=== PATIENT | female | born 1940 | race Caucasian/White ===

== ENCOUNTER → 2019-11-19 14:53 | Outpatient (CLI) | payer MEDICARE, OTHER, SELFPAY ==
--- NOTE | 2019-11-19 15:09 | RAD_ITS ---
STUDY: X-RAY - PELVIS REASON FOR EXAM: Female, 78 years old. Pain, stiffness TECHNIQUE: One view of the pelvis was obtained. COMPARISON: None. FINDINGS: There is a non-specific bowel gas pattern. Normal visualized soft tissue structures. There is diffuse demineralization of the osseous structures. There is narrowing with cortical sclerosis and osteophyte formation of the sacroiliac joint consistent with degenerative osteoarthritic changes. Normal visualized bilateral superior and inferior pubic rami. Normal pubic symphysis. Normal ischial tuberosities. Normal visualized right femoral head. Normal right acetabulum. There is mild articular joint space narrowing of the right hip. Normal visualized left femoral head. Normal left acetabulum. There is mild articular joint space narrowing of the left hip. RAD/Pelvis 1 or 2 Views IMPRESSION: Age consistent degenerative changes, no acute findings Electronically Signed: Seun Siddiqui MD at 16:08 EST , Service support ,
[2019-11-19 17:43] LABS: Absolute Lymphocyte Count 0.73 X10^3/uL (0.83-4.51); Basophil# 0.04 X10^3/uL; Basophil% 0.6 % (0-1); Eosinophil# 0.01 X10^3/uL; Eosinophils% 0.1 % (0-5); Hematocrit 42.9 % (37-47); Hemoglobin 13.5 g/dL (12.0-15.0); Lymphocyte # 0.73 X10^3/ul (4.0); Lymphocyte % 10.5 % (19-41); Mean Corp Hgb Conc 31.5 g/dL (32-36); Mean Corpuscular Hgb 30.5 pg (27.0-32.0); Mean Corpuscular Volume 97.1 fL (81-99); Mean Platelet Vol. 11.5 fl (6.2-12.0); Monocyte# 0.14 X10^3/uL; NRBC Flagged by Analyzer 0 % (0-5); Neutrophil # 6.01 X10^3/uL (2.7-7.7); Neutrophil % 86.5 % (47-70); Platelet Count 249 K/mm3 (150-450); RBC Distribution Width CV 14.7 % (11.6-14.6); RBC Distribution Width SD 53.3 fl (35.1-43.9); Red Blood Count 4.42 M/mm3 (4.2-5.4)
[2019-11-19 17:51] LABS: Erythrocyte Sedimentation Rate 32 mm/hr (0-30)
[2019-11-19 18:02] LABS: ALB/GLOB Ratio 1.1 RATIO (0.9-2.4); AST(SGOT) 20 U/L (15-37); Alanine Aminotransfer ALT/SGPT 30 U/L (13-56); Albumin, Serum 4.1 g/dL (3.2-5.0); Alkaline Phosphatase 69 U/L (45-117); Anion Gap 5 (5-15); BUN 17 mg/dL (7-18); Calcium,Total 9.8 mg/dL (8.5-10.1); Chloride 105 mmol/L (98-107); Creatinine, Serum 0.81 mg/dL (0.55-1.02); EST Glomerular Filtration Rate 73 mL/min (>60); Est Glom Filt Rate - Afr Amer 88 mL/min (>60); Globulin 3.8 g/dL (2.2-4.2); Glucose 97 mg/dL (74-106); Protein, Total 7.9 g/dL (6.4-8.2); Rheumatoid Factor < 10.0 IU/mL (<15); Sodium Level 140 mmol/L (136-145)
[2019-11-20 13:01] LABS: Hepatitis B Surface Antibody Non-Reactive; Hepatitis B Surface Antigen Non-Reactive (Nonreactive); Hepatitis C Antibody Non-Reactive (Nonreactive)
[2019-11-21 15:46] LABS: ANTINUCLEAR ANTIBODIES DIRECT Negative (Negative)
[2019-11-22 05:43] LABS: CCP IgG Antibodies 15 units (0-19); Hepatitis B Core AB IgM Negative (Negative)
== END ==
PROVIDERS: PCP Family Medicine; Referring Provider Internal Medicine Rheumatology; Visit Provider Internal Medicine Rheumatology
DX: M06.4 Inflammatory polyarthropathy (principal); M47.897 Other spondylosis, lumbosacral region; K21.9 Gastro-esophageal reflux disease without esophagitis
CPT/HCPCS: 36415; 72170; 80053; 85025; 85652; 86038; 86140; 86200; 86431; 86705; 86706; 86803; 87340

== ENCOUNTER → 2020-03-03 11:03 | Outpatient (CLI) | payer MEDICARE, OTHER, SELFPAY ==
[2020-03-03 15:13] LABS: Absolute Lymphocyte Count 0.97 X10^3/uL (0.83-4.51); Absolute Neutrophil Count 7.6 X10^3/uL (2.0-7.7); Basophil# 0.06 X10^3/uL; Basophil% 0.7 % (0-1); Eosinophil# 0.04 X10^3/uL; Eosinophils% 0.4 % (0-5); Hematocrit 45.7 % (37-47); Hemoglobin 14.2 g/dL (12.0-15.0); Lymphocyte # 0.97 X10^3/ul (4.0); Lymphocyte % 10.7 % (19-41); Mean Corp Hgb Conc 31.1 g/dL (32-36); Mean Corpuscular Hgb 29.6 pg (27.0-32.0); Mean Corpuscular Volume 95.2 fL (81-99); Monocyte# 0.38 X10^3/uL; Monocyte% 4.2 % (0-10); NRBC Flagged by Analyzer 0 % (0-5); Neutrophil # 7.57 X10^3/uL (2.7-7.7); Neutrophil % 83.8 % (47-70); Platelet Count 250 K/mm3 (150-450); RBC Distribution Width CV 13.5 % (11.6-14.6); RBC Distribution Width SD 47.6 fl (35.1-43.9)
[2020-03-03 15:34] LABS: AST(SGOT) 18 U/L (15-37); Alanine Aminotransfer ALT/SGPT 29 U/L (13-56); Albumin, Serum 3.9 g/dL (3.2-5.0); Alkaline Phosphatase 62 U/L (45-117); Anion Gap 6 (5-15); BUN 18 mg/dL (7-18); BUN/Creat Ratio 18.8 RATIO (10-20); Chloride 105 mmol/L (98-107); Creatinine, Serum 0.96 mg/dL (0.55-1.02); EST Glomerular Filtration Rate 60 mL/min (>60); Est Glom Filt Rate - Afr Amer 73 mL/min (>60); Globulin 3.8 g/dL (2.2-4.2); Glucose 80 mg/dL (74-106); Potassium 3.7 mmol/L (3.5-5.1); Protein, Total 7.7 g/dL (6.4-8.2); Sodium Level 141 mmol/L (136-145)
== END ==
PROVIDERS: PCP Family Medicine; Referring Provider Internal Medicine Rheumatology; Visit Provider Internal Medicine Rheumatology
DX: M06.4 Inflammatory polyarthropathy (principal); M47.897 Other spondylosis, lumbosacral region; K21.9 Gastro-esophageal reflux disease without esophagitis
CPT/HCPCS: 36415; 80053; 85025

== ENCOUNTER 2020-03-26 09:30 | Outpatient (RCR) | payer MEDICARE, OTHER, SELFPAY ==
--- NOTE | 2020-02-28 15:16 | HP.PTEVAL ---
Patient's Visit Information LAURIE HANSEN is a 79 year old F referred to Physical Therapy by Dr. Kenneth Smyth MD with a diagnosis of Unsteediness on feet. Date of Evaluation: 02/28/20 Physical Therapist: Mauro Alexandra, LUCRETIAT, OCS, CSCS - Visit Plan Frequency: 2x /Week Duration: 2 Months Plan: Neurocom balacne assessment. then 2x/week for 4-8 weeks for. 1. LE and postural strength program pt can do at home. 2. ankle and feet proprioceptive adn coordination ex progressing to HEP. 3. Work on any deficits found on balance testing. - Subjective Dr. Michele sent to Dr. Smyth. Sees Leny for Polymyalgia rhumatica. Leny said RA but joints feel really good. Does have pain in UT area and larger muscle groups. Coordination and gait are off. Lived in [place] for 12 years and got hard to do steps maybe due to stress. 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 Dr. Michele sent to [facility] who got MRI 2 days ago. No results yet. Maybe looking for slight stroke?!? Forgetful and runs into door jambs move into her way. No recent falls in last two years. No AD needed. Has steps to second story and basement which she needs to hold on for. Then says last fall was 10 months or so ago coming out of restaurant and stepping off curb. Also fella week later on steps at her home at that time. Does not feel steady, has to be careful. No spinning but does veer when on feet. Some days are good and others are worse without pattern. No real pain unless shoulders achy. Tires out around 4:00. Sleep is good. Has to be careful getting up out of bed. Basic ADLs are getting done, had surgeries on back recently and she is able to help him. No regular exercises. Last 3 hour drum gig was last year. - Objective Walks slowly but steady on firm flat surface. Steps are reciprocal requiring rail but only puts half of foot on step and is weak eccentrically. Transfers I. LE AROM WFL and HS and gastroc mod tight. coordination to reciprocal toe adn heel tap is mild deficits. heel to jon is good. reflexes 1/3 patella adn achilles and bi and tri. Sensation WNL to gross light touch in LE. Strength 4/5 Legs except hip abd and ext 3+. VOR walking is mildly challenging. - Balance Scores Functional Gait Assessment Score: 26 % Disability: 13.3400 CATSIB Score (Max score 120 seconds): 98 - Goals Goal 1:: I approp LE and postural strength adn prorpioceptive ex to maintain improvement in condition Goal Time Frame: 4-6 Weeks Goal 2:: Neurocom balance assess adn explain results Goal Time Frame: 1 Week Goal 3:: Pt feel 75% improved in overall steadiness and strength Goal Time Frame: 4-6 Weeks Goal 4:: LEFSscore of 25% disability or less Goal Time Frame: 4-6 Weeks - Rehabilitation Potential Physical Therapy Diagnosis: Unsteadiness on feet Rehabilitation Potential: Fair - Anticipated Interventions Patient/Client Instruction: Educate patient on: Condition, Plan of Care For the Purpose of:: To improve muscle performance and motor function, To increase tolerance to activity/condition/position, To improve gait and locomotor functions Therapeutic Exercise to Include: Strength training, Balance training, Postural training, Neuromotor development For the Purpose of:: To increase tolerance to activity/condition/position, To improve ability of physical actions for home/community/work/leisure, To improve gait and locomotor functions Thank you for the opportunity to evaluate your patient. For Medicare and Medicare HMO plans, please review the plan of care and approve it. It will need to be FAXED BACK to us at [phone] for Medicare purposes. For Medicare only, by signing this I certify the plan of care. Please let me know if there are questions or concerns regarding this plan of care. Physician Signature: Date:
--- NOTE | 2020-03-04 10:47 | HP.PTCOM_ITS ---
PT Communication Note 03/04/[address] Kenneth Smyth MD , Thank you for the referral of Radha to [facility] for Balance Assessment. I have enclosed a copy of the results for your review. In summation, she scored low on vestibular portion of the Sensory Organization Test. She also scored low on the forward excursion on the Limits of Stability Test. With these results in mind, I plan to see her 2x/week for 4-8 weeks for ex to address LE strength, ankle strength adn coordination and the above mentioned balance deficits. Please contact me if you have questions regarding her physical therapy. Thank you. Sincerely, LUCRETIA ReedT, OCS, CSCS Contact Information
--- NOTE | 2020-03-26 10:32 | HP.PTDCSUM ---
It has been my pleasure to treat LAURIE HANSEN referred by Dr. Kenneth Smyth MD, with the diagnosis of Unsteediness on feet for a total of 10 visit(s). Discharge Date: 03/26/20 Please see the following information for a summary of their discharge status. Subjective: Endurance is still iffy, Balance is better. Strength is improving a little bit. Feels like if she gets into a routine with ex and stay motivated. % Improvement: 50 Objective/Function: + 2 FGA. exits chair without UE easily and I. Steps reciprocal without rail today. Feels like she can continue on her own at home. Goal 1:: I approp LE and postural strength adn prorpioceptive ex to maintain improvement in condition Goal Progress: Goal Met Goal 2:: Neurocom balance assess adn explain results Goal Progress: Goal Met Goal 3:: Pt feel 75% improved in overall steadiness and strength Goal Progress: Progressing Goal 4:: LEFSscore of 25% disability or less Goal Progress: Goal Met Plan: d/c If there are questions or concerns regarding this patient's physical therapy, please feel free to call me at [phone]. Thank you for the referral of this patient. Sincerely, Mauro Alexandra, DPT, OCS, CSCS
== END 2020-03-26 19:00 | disposition home or self-care (01) ==
LOC: PT 09:30
PROVIDERS: PCP Family Medicine; Referring Provider Psychiatry & Neurology Neurology; Visit Provider Psychiatry & Neurology Neurology
DX: M35.3 Polymyalgia rheumatica (principal); R26.81 Unsteadiness on feet
CPT/HCPCS: 97110; 97162; 97164; 97530; 97750

== ENCOUNTER → 2020-12-03 10:53 | Outpatient (CLI) | payer MEDICARE, SELFPAY ==
[2020-11-24 09:27] VITALS: BMI 27.6
--- NOTE | 2020-12-03 10:55 | MRI_ITS ---
STUDY: MRI BRAIN WITH AND WITHOUT CONTRAST REASON FOR EXAM: Female, 79 years old. Cerebral Vascular Disease TECHNIQUE: Standardized multiplanar fat and water weighted pulse sequences were obtained. 15 ML IV DOTAREM was administered for the contrast portion of the examination. COMPARISON: MRI brain without contrast 02/26/2020. FINDINGS: No diffusion restriction to suggest acute or subacute ischemic infarct. Normal size of the ventricles and extra-axial spaces for the patient''s age. T2 FLAIR hyperintensity focus in the left side of the splenium of the corpus callosum is presumably chronic white matter ischemic change. This is unchanged. Posterior periventricular white matter and left temporal lobe subcortical white matter T2 FLAIR hyperintensity foci were also present previously. They are most likely chronic white matter ischemic changes. No midline shift and no mass effects. Normal bilateral basal ganglia. Normal thalami. There is no extra-axial fluid accumulation. Normal flow voids within the major intracranial circulation suggesting patency by spin echo criteria. Normal venous enhancement. There is no enhancing intra-axial or extra-axial abnormality. Normal sella turcica, pituitary gland, infundibular stalk, optic chiasm and hypothalamus. Normal tectal plate and pineal gland. Round T2 FLAIR hyperintensity focus in the right central pontine tegmentum is chronic ischemic change. Normal midbrain and medulla. Normal cerebellum. Normal basal cisterns. Normal bilateral temporal bones. Normal bilateral internal auditory canals. No demonstrated orbital abnormality, within the constraints of a routine brain study. Normal visualized paranasal sinuses. Normal calvarium and skull base. Normal visualized soft tissue structures. Normal visualized upper cervical spine. MRI/Brain W/WO Contrast IMPRESSION: 1. No MRI evidence of recent ischemic infarction. 2. 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 3. No interval changes or new findings when compared to 02/26/2020. Electronically Signed: Fly Sanchez MD at 8:54 EST , Service support ,
== END ==
PROVIDERS: PCP Family Medicine; Referring Provider Psychiatry & Neurology Neurology; Visit Provider Psychiatry & Neurology Neurology
DX: G31.84 Mild cognitive impairment of uncertain or unknown etiology (principal); I67.9 Cerebrovascular disease, unspecified
CPT/HCPCS: 70553; A9575

== ENCOUNTER → 2021-02-23 11:15 | Outpatient (CLI) | payer MEDICARE, SELFPAY ==
[2021-01-19 13:11] VITALS: BMI 27.6
[2021-02-23 15:22] LABS: Absolute Lymphocyte Count 0.98 X10^3/uL (0.83-4.51); Basophil# 0.06 X10^3/uL; Basophil% 1.1 % (0-1); Eosinophil# 0.04 X10^3/uL; Eosinophils% 0.7 % (0-5); Hemoglobin 12.9 g/dL (12.0-15.0); Lymphocyte # 0.98 X10^3/ul (0.83-4.51); Lymphocyte % 18.4 % (19-41); Mean Corp Hgb Conc 31.5 g/dL (32-36); Mean Corpuscular Hgb 29.7 pg (27.0-32.0); Mean Corpuscular Volume 94.3 fL (81-99); Mean Platelet Vol. 11.8 fl (6.2-12.0); Monocyte# 0.24 X10^3/uL; Monocyte% 4.5 % (0-10); NRBC Flagged by Analyzer 0 % (0-5); Neutrophil # 4.01 X10^3/uL (2.7-7.7); Neutrophil % 75.1 % (47-70); Platelet Count 263 K/mm3 (150-450); RBC Distribution Width CV 13.5 % (11.6-14.6); RBC Distribution Width SD 47.2 fl (35.1-43.9); Red Blood Count 4.35 M/mm3 (4.2-5.4); White Blood Count 5.3 K/mm3 (4.4-11.0)
[2021-02-23 15:43] LABS: ALB/GLOB Ratio 1.1 RATIO (0.9-2.4); AST(SGOT) 28 U/L (15-37); Alanine Aminotransfer ALT/SGPT 26 U/L (13-56); Albumin, Serum 3.9 g/dL (3.2-5.0); Alkaline Phosphatase 70 U/L (45-117); Anion Gap 5 (5-15); BUN 13 mg/dL (7-18); BUN/Creat Ratio 14.8 RATIO (10-20); Calcium,Total 10.1 mg/dL (8.5-10.1); Chloride 107 mmol/L (98-107); Creatinine, Serum 0.88 mg/dL (0.55-1.02); EST Glomerular Filtration Rate 66 mL/min (>60); Est Glom Filt Rate - Afr Amer 80 mL/min (>60); Globulin 3.4 g/dL (2.2-4.2); Glucose 89 mg/dL (74-106); Potassium 4.1 mmol/L (3.5-5.1); Protein, Total 7.3 g/dL (6.4-8.2); Sodium Level 140 mmol/L (136-145)
== END ==
PROVIDERS: PCP Family Medicine; Referring Provider Internal Medicine Rheumatology; Visit Provider Internal Medicine Rheumatology
DX: M06.4 Inflammatory polyarthropathy (principal); M47.897 Other spondylosis, lumbosacral region; K21.9 Gastro-esophageal reflux disease without esophagitis
CPT/HCPCS: 36415; 80053; 85025

== ENCOUNTER → 2023-04-10 | Outpatient (CLI) | payer BC, SELFPAY ==
--- NOTE | 2023-04-10 13:04 | RAD_ITS ---
INDICATION: Right Hip Pain EXAMINATION/TECHNIQUE: X-RAY - XR Hip Unilateral with Pelvis when performed; 2-3 Views COMPARISON: None. FINDINGS: PELVIC BONES: No displaced fracture, destructive or sclerotic lesions. Note that overlapping bowel shadows may however obscure fine detail. Sacroiliac joints are unremarkable. There is narrowing of the pubic symphysis, accompanied by subarticular sclerosis and early superior periarticular spurring HIPS: Mild to moderate medial narrowing of the right hip joint space, accompanied by periarticular spurring of the femoral head No displaced fracture seen in this frontal view. SOFT TISSUES: No soft tissue swelling or gas. OTHER: Moderate disc height narrowing and facet arthropathies noted at L4-5. RAD/HIP, UNI W/ Pelvis 2-3 Views IMPRESSION: Degenerative changes in the lower lumbar spine and at the right hip, as noted. Electronically Signed: Seun Wilkes MD at 14:26 EDT Reading Location ID and State: [id number] / Unknown , Service support ,
--- NOTE | 2023-04-10 13:04 | RAD_ITS ---
INDICATION: Bilateral Knee Pain EXAMINATION/TECHNIQUE: X-RAY - Upright RIGHT XR Knee 3 Views COMPARISON: None FINDINGS: SOFT TISSUES: Small suprapatellar joint effusion present. No soft tissue swelling or gas. No radiopaque foreign body. BONES/JOINTS: No acute fracture or subluxation. Normal alignment. There is early periarticular spurring of the patella. Mild narrowing of the lateral femorotibial compartment. Chondrocalcinosis incidentally noted in both the medial and lateral femorotibial compartments as well. No sclerotic or destructive changes observed. RAD/Knee 3 Views IMPRESSION: 1. Chondrocalcinosis and small suprapatellar joint effusion, findings that can be associated with pathology such as gout, pseudogout, and ochronosis. 2. Mild degenerative narrowing in the lateral femorotibial compartment. Electronically Signed: Seun Wilkes MD at 16:47 EDT Reading Location ID and State: [id number] / Unknown , Service support ,
--- NOTE | 2023-04-10 13:04 | RAD_ITS ---
INDICATION: Right Shoulder Pain EXAMINATION/TECHNIQUE: X-RAY - RIGHT XR Shoulder Min 2 Views 4 VIEWS COMPARISON: None. FINDINGS: SOFT TISSUES: No soft tissue swelling or gas. No radiopaque foreign body. BONES/JOINTS: No acute fracture or subluxation.. Normal alignment. Borderline narrowing of the inferior glenohumeral joint space with early periarticular spurring from the inferior margin of the glenoid. No sclerotic or destructive changes observed. RAD/Shoulder min 2 Views IMPRESSION: Early degenerative change at the inferior aspect of the right glenohumeral joint. Electronically Signed: Seun Wilkes MD at 14:18 EDT Reading Location ID and State: [id number] / Unknown , Service support ,
--- NOTE | 2023-04-10 13:07 | RAD_ITS ---
INDICATION: PAIN -- BILAT KNEES ORDERED EXAMINATION/TECHNIQUE: X-RAY - Upright LEFT XR Knee 3 Views COMPARISON: None FINDINGS: SOFT TISSUES: Small suprapatellar joint effusion present. No soft tissue swelling or gas. No radiopaque foreign body. BONES/JOINTS: No acute fracture or subluxation. Normal alignment. There is early periarticular spurring of the medial and lateral tibial plateaus. Mild narrowing of the lateral femorotibial compartment. Chondrocalcinosis incidentally noted in both the medial and lateral femorotibial compartments as well. No sclerotic or destructive changes observed. RAD/Knee 3 Views IMPRESSION: 1. Chondrocalcinosis and small suprapatellar joint effusion, findings that can be associated with pathology such as gout, pseudogout, and ochronosis. 2. Mild degenerative narrowing in the lateral femorotibial compartment. Electronically Signed: Seun Wilkes MD at 14:22 EDT Reading Location ID and State: [id number] / Unknown , Service support ,
== END | disposition home or self-care (01) ==
PROVIDERS: PCP Family Medicine; Referring Provider Psychiatry & Neurology Neurology; Visit Provider Psychiatry & Neurology Neurology
DX: M25.561 Pain in right knee (principal); M25.562 Pain in left knee; M25.511 Pain in right shoulder; M25.551 Pain in right hip
CPT/HCPCS: 73030; 73502; 73562

== ENCOUNTER → 2023-10-12 | Outpatient (CLI) | payer BC, SELFPAY ==
--- NOTE | 2023-10-12 16:30 | RAD_ITS ---
STUDY: X-RAY - LUMBAR SPINE REASON FOR EXAM: Female, 82 years old. low back pain TECHNIQUE: 2 view(s) of the lumbar spine were obtained. COMPARISON: None FINDINGS: Normal lumbar lordosis. Mild dextroscoliosis centered at L2. 2 mm of anterolisthesis of L4 on L5. Normal vertebral bodies and endplates. Normal disc space heights. There is multilevel facet hypertrophy in the lumbar spine. The soft tissue structures are unremarkable. RAD/Lumbar Spine 2 or 3 Views IMPRESSION: Mild dextroscoliosis with degenerative disc disease in 2 mm of anterolisthesis of L4 on L5. Electronically Signed: Alan Fraser MD at 19:01 EST ,
--- OUTSIDE RECORDS SUMMARY | 2023-10-12 16:40 | XMS RPT_ITS | CCD ---
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 Evgeny Wiggins Referring Unava ilable Stencel, Dr. Evgeny Wiggins Primary Care Unava ilable Stencel, Dr. Evgeny Wiggins Attending Unava ilable Stencel, Dr. Evgeny Wiggins Referring Unava ilable Stencel, Dr. Evgeny Wiggins Primary Care Unava ilable Stencel, Dr. Evgeny Wiggins Attending Unava ilable Stencel, Dr. Evgeny Wiggins Attending Unava ilable Stencel, Dr. Evgeny Wiggins Primary Care Unava ilable Badmelissa, Dr. Bishnu Betancourt Attending Unav ailable Stencel, Dr. Evgeny Wiggins Primary Care Unava ilable Stencel, Dr. Evgeny Wiggins Primary Care Unava ilable Badmelissa, Dr. Bishnu Betancourt Attending Arabellav ailBISHNU Tang Referring Unavaila ble STENCEL, EVGENY Tellez Primary Care Unavailable STENCEL, EVGENY Tellez Primary Care Unavailable STENCEL, EVGENY Tellez Primary Care Unavailable BADDOBISHNU AMOR Referring Unavaila ble STENCEL, EVGENY Tellez Primary Care Unavailable STENCEL, EVGENY Tellez Primary Care Unavailable STENCEL, EVGENY Tellez Attending Unavailable STENCEL, EVGENY Tellez Primary Care Unavailable STENCEL, EVGENY Tellez Attending Unavailable STENCEL, EVGENY Tellez Primary Care Unavailable STENCEL, EVGENY Tellez Attending Unavailable STENCEL, EVGENY D Referring Unavailable EVGENY ZAVALETA Primary Care Unavailable Medications Current Medications Medication Drug Class(es) Dates Sig (Normalized) Sig (Original) alendronic acid 70 mg oral tablet (8 sources) Bisphosphonate End: 03-16-2023 take 1 tablet by mouth in the morning alendronate (Fosamax) 70 mg tablet Take 1 tablet (70 mg) by mouth every 7 days. Take in the morning with a full glass of water, on an empty stomach, and do not take anything else by mouth or lie down for the next 30 min. 0 03/16/2023 Discontinued (Therapy completed) Completed/Discontinued Medications Medication Drug Class(es) Dates Sig (Normalized) Sig (Original) aspirin 81 mg delayed release oral tablet (13 sources) Platelet Aggregation Inhibitor, Nonsteroidal Anti-inflammatory Drug Start: 09-28-2020 End: 03-16-2023 take 1 tablet by mouth once daily Adult Aspirin Regimen 81 MG Oral Tablet Delayed Release TAKE 1 TABLET DAILY. Quantity: 0 Refills: 0 Ordered: 28-Sep-2020 Evgeny Zavaleta MD Start : 28-Sep-2020 Active Problems Active Problems Problem Classification Problem Date Documented Date Episodic/Chronic Conditions associated with dizziness or vertigo (12 sources) Dizziness; Translations: [Dizziness and giddiness] Onset: 11-28-2022 11-28-2022 Episodic Esophageal disorders (12 sources) Gastroesophageal reflux disease; Translations: [Esophageal reflux] Onset: 11-28-2022 Resolved: 03-16-2023 03-16-2023 Chronic Essential hypertension (9 sources) Benign essential hypertension; Translations: [Benign essential hypertension] Onset: 11-28-2022 03-16-2023 Chronic Immunizations and screening for infectious disease (20 sources) Patient encounter status; Translations: [Other specified vaccination] Episodic Malaise and fatigue (2 sources) Weakness; Translations: [Weakness] Onset: 10-03-2023 Episodic Other connective tissue disease (13 sources) Polymyalgia rheumatica; Translations: [Polymyalgia rheumatica] Onset: 11-28-2022 03-16-2023 Chronic Other connective tissue disease (4 sources) Polymyalgia rheumatica; Translations: [Polymyalgia rheumatica (CMS/HCC)] Onset: 11-28-2022 Chronic Other injuries and conditions due to external causes (1 source) Foreign body in ear; Translations: [Foreign body in ear] 04-14-2022 Episodic Other nervous system disorders (7 sources) Carpal tunnel syndrome; Translations: [Carpal tunnel syndrome] Chronic Other nervous system disorders (2 sources) Other chronic pain; Translations: [Other chronic pain] Onset: 07-06-2023 Chronic Other nervous system disorders (12 sources) Abnormal gait; Translations: [Abnormality of gait] Onset: 11-28-2022 Resolved: 03-16-2023 03-16-2023 Episodic Other nervous system disorders (3 sources) Unspecified abnormalities of gait and mobility; Translations: [Unspecified abnormalities of gait and mobility] Onset: 06-21-2023 Episodic Other non-traumatic joint disorders (5 sources) Pain in right knee; Translations: [Pain in right knee] Onset: 06-21-2023 Episodic Other non-traumatic joint disorders (1 source) Hip pain; Translations: [Pain in joint, pelvic region and thigh] Episodic Other non-traumatic joint disorders (4 sources) Pain in right shoulder; Translations: [Pain in right shoulder] Onset: 06-21-2023 Episodic Other non-traumatic joint disorders (3 sources) Pain in left knee; Translations: [Pain in left knee] Onset: 06-21-2023 Episodic Other non-traumatic joint disorders (3 sources) Pain in right hip; Translations: [Pain in right hip] Onset: 06-21-2023 Episodic Other upper respiratory infections (2 sources) Acute upper respiratory infection, unspecified; Translations: [Acute upper respiratory infection, unspecified] Onset: 11-21-2022 Episodic Residual codes; unclassified (12 sources) Forgetful; Translations: [Other general symptoms] Onset: 11-28-2022 11-28-2022 Episodic Residual codes; unclassified (3 sources) Body mass index 20-24 - normal; Translations: [Body Mass Index between 19-24, adult] Episodic Rheumatoid arthritis and related disease (12 sources) Inflammatory polyarthropathy; 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] Onset: 11-28-2022 Resolved: 11-28-2022 11-28-2022 Chronic Spondylosis; intervertebral disc disorders; other back problems (12 sources) Lumbosacral spondylosis; Translations: [Lumbosacral spondylosis without myelopathy] Onset: 11-28-2022 Resolved: 11-28-2022 11-28-2022 Chronic Unclassified (2 sources) FB L EAR 04-14-2022 Past or Other Problems Problem Classification Problem Date Documented Da te Episodic/Chronic Other nervous system disorders (1 source) Carpal tunnel syndrome of right wrist; Translations: [Carpal tunnel syndrome, right upper limb] Onset: 11-28-2022 Resolved: 03-16-2023 03-16-2023 Chronic Unclassified (1 source) Onset: 03-16-2023 03-16-2023 Unclassified (2 sources) Acute cough; Translations: [Acute cough] Onset: 11-28-2022 Results Test Name Value Interpretation Reference Range Facil ity Vital Signs Date Time Vital Sign Value Performing Clinician Facility 03-16-2023 09:06-0400 Body height 157.5 cm Evgeny Zavaleta MD Work Phone: [facility] 03-16-2023 09:06-0400 Body mass index (BMI) [Ratio] 23.01 kg/m2 Evgeny Zavaleta MD Work Phone: [facility] 03-16-2023 09:06-0400 Body weight 57.06 kg Evgeny Zavaleta MD Work Phone: [facility] 03-16-2023 09:06-0400 Diastolic blood pressure 70 mm[Hg] Evgeyn Zavaleta MD Work Phone: [facility] 03-16-2023 09:06-0400 Heart rate 74 /min Evgeny Zavaleta MD Work Phone: [facility] 03-16-2023 09:06-0400 SaO2% (BldA) [Mass fraction] 96 % Evgeny Zavaleta MD Work Phone: [facility] 03-16-2023 09:06-0400 Systolic blood pressure 130 mm[Hg] Evgeny Zavaleta MD Work Phone: [facility] 08-12-2022 08:39-0500 Body height 157.48 cm Evgeny Zavaleta Work Phone: [facility] Work Phone: 08-12-2022 08:39-0500 Body mass index (BMI) [Ratio] 24.22 kg/m2 Evgeny Zavaleta Work Phone: [facility] Work Phone: 08-12-2022 08:39-0500 Body surface area Derived from formula 1.6 m2 Evgeny Zavaleta Work Phone: [facility] Work Phone: 08-12-2022 08:39-0500 Body weight 60.07 kg Evgeny Zavaleta Work Phone: [facility] Work Phone: 08-12-2022 08:39-0500 Diastolic blood pressure 68 mm[Hg] Evgeny Zavaleta Work Phone: [facility] Work Phone: 08-12-2022 08:39-0500 Heart rate 80 /min Evgeny Zavaleta Work Phone: [facility] Work Phone: 08-12-2022 08:39-0500 SaO2% (BldA) [Mass fraction] 98 % Evgeny Zavaleta Work Phone: [facility] Work Phone: 08-12-2022 08:39-0500 Systolic blood pressure 120 mm[Hg] Evgeny Lopezcel Work Phone: [facility] Work Phone: 04-14-2022 14:53-0400 Body height 157 cm Evgeny Lopezcel Other Phone: [facility] 04-14-2022 14:53-0400 Body temperature 97.88 [degF] Evgeny Lopezcel Other Phone: [facility] 04-14-2022 14:53-0400 Diastolic blood pressure 83 mm[Hg] Evgeny Lopezcel Other Phone: [facility] 04-14-2022 14:53-0400 Heart rate 90 /min Evgeny Zavaleta Other Phone: [facility] 04-14-2022 14:53-0400 SaO2% (BldA) [Mass fraction] 98 % Evgeny Lopezcel Other Phone: [facility] 04-14-2022 14:53-0400 Systolic blood pressure 150 mm[Hg] Evgeny Lopezcel Other Phone: [facility] 04-12-2022 14:51-0400 Body height 157.48 cm Evgeny Lopezcel Work Phone: [facility] [employer] [facility] Work Phone: 04-12-2022 14:51-0400 Body mass index (BMI) [Ratio] 24.19 kg/m2 Evgeny Lopezcel Work Phone: [facility] [employer] [facility] Work Phone: 04-12-2022 14:51-0400 Body surface area Derived from formula 1.6 m2 Evgeny Zavaleta Work Phone: [employer] [facility] Work Phone: 04-12-2022 14:51-0400 Body weight 59.99 kg Evgeny Zavaleta Work Phone: [employer] [employer] [facility] Work Phone: 04-12-2022 14:51-0400 Diastolic blood pressure 68 mm[Hg] Evgeny Lopezcel Work Phone: [facility] [employer] [facility] Work Phone: 04-12-2022 14:51-0400 Heart rate 82 /min Evgeny Lopezcel Work Phone: [employer] [employer] [facility] Work Phone: 04-12-2022 14:51-0400 SaO2% (BldA) [Mass fraction] 99 % Evgeny Lopezcel Work Phone: [facility] Work Phone: 04-12-2022 14:51-0400 Systolic blood pressure 142 mm[Hg] Evgeny Lopezcel Work Phone: [facility] Work Phone: 12-09-2021 09:07-0400 Body height 157.48 cm Evgeny D Stencel Work Phone: [facility] Work Phone: 12-09-2021 09:07-0400 Body mass index (BMI) [Ratio] 23.96 kg/m2 Evgeny D Stencel Work Phone: [facility] Work Phone: 12-09-2021 09:07-0400 Body surface area Derived from formula 1.6 m2 Evgeny D Stencel Work Phone: [facility] Work Phone: 12-09-2021 09:07-0400 Body temperature 97.3 [degF] Evgeny Tellez Stencel Work Phone: [facility] Work Phone: 12-09-2021 09:07-0400 Body weight 59.42 kg Evgeny D Stencel Work Phone: [facility] Work Phone: 09-30-2021 09:06-0500 Body height 157.48 cm Evgeny Tellez Stencel Work Phone: [facility] Work Phone: 09-30-2021 09:06-0500 Body mass index (BMI) [Ratio] 24.51 kg/m2 Evgeny D Stencel Work Phone: [facility] Work Phone: 09-30-2021 09:06-0500 Body surface area Derived from formula 1.61 m2 Evgeny D Stencel Work Phone: [facility] Work Phone: 09-30-2021 09:06-0500 Body weight 60.78 kg Evgeny Zavaleta Work Phone: [facility] Work Phone: 03-30-2021 11:53-0400 Diastolic blood pressure 70 mm[Hg] Evgeny Lopezcel Work Phone: [facility] Work Phone: 03-30-2021 11:53-0400 Systolic blood pressure 136 mm[Hg] Evgeny Tellez St[facility] Work Phone: [facility] Work Phone: 03-30-2021 10:53-0400 Body height 157.48 cm Evgeny Lopezcel Work Phone: [facility] Work Phone: 03-30-2021 10:53-0400 Body mass index (BMI) [Ratio] 26.19 kg/m2 Evgeny Lopezcel Work Phone: [facility] Work Phone: 03-30-2021 10:53-0400 Body surface area Derived from formula 1.66 m2 Evgeny Zavaleta Work Phone: [facility] Work Phone: 03-30-2021 10:53-0400 Body temperature 97.8 [degF] Evgeny Lopezcel Work Phone: [facility] Work Phone: 03-30-2021 10:53-0400 Body weight 64.95 kg Evgeny Lopezcel Work Phone: [facility] Work Phone: 03-30-2021 10:53-0400 Diastolic blood pressure 80 mm[Hg] Evgeny Lopezcel Work Phone: [facility] Work Phone: 03-30-2021 10:53-0400 Heart rate 77 /min Evgeny Zavaleta Work Phone: [facility] Work Phone: 03-30-2021 10:53-0400 SaO2% (BldA) [Mass fraction] 98 % Evgeny Zavaleta Work Phone: [facility] [employer] [facility] Work Phone: 03-30-2021 10:53-0400 Systolic blood pressure 144 mm[Hg] Evgeny Zavaleta Work Phone: [facility] [facility] Work Phone: Encounters Encounter Date Encounter Type Care Provider Facility Start: 10-03-2023 End: 10-03-2023 ambulatory [facility] Start: 09-08-2023 End: 09-08-2023 ambulatory BISHNU BETANCOURT [facility] Start: 07-27-2023 End: 07-27-2023 ambulatory EVGENY Tellez [facility] Start: 07-20-2023 End: 07-20-2023 ambulatory BISHNU BETANCOURT [facility] Start: 07-14-2023 End: 07-14-2023 ambulatory [facility] Start: 07-06-2023 End: 07-06-2023 [facility] Start: 06-21-[address] Bishnu munoz [facility] Facility:[id number] Start: 06-15-2023 Patient encounter procedure Evgeny Rosalinda Zavaleta Work Phone: [facility] Work Phone: Start: 06-15-[address] Evgeny Lindquist Facility:[id number] Start: 03-16-2023 End: 03-17-2023 ambulatory [facility] Telle[facility] Start: 03-16-2023 End: 03-16-2023 ambulatory [facility] Start: 03-16-2023 End: 03-16-2023 Encounter for general adult medical examination without abnormal findings EVGENY ZAVALETA [facility] Start: 03-16-2023 End: 03-16-2023 Assay of hemosiderin, quant Evgeny Zavaleta MD Work Phone: [facility] Work Phone: Start: 03-16-2023 End: 03-16-2023 Patient encounter procedure Evgeny Zavaleta MD Work Phone: [facility] Procedures Date Procedure Procedure Detail Performing Clinician Start: 10-03-2023 FOLLOW UP IN FAMILY MEDICINE EVGENY ZAVALETA Start: 09-08-2023 FOLLOW UP IN PHYSICA L THERAPY [facility] Start: 07-27-2023 FOLLOW UP IN PHYSICA L THERAPY [facility] Start: 07-20-2023 FOLLOW UP IN PHYSICA L THERAPY [facility] Start: 03-16-2023 SEDIMENTATION RATE, AUTOMATED EVGENY ZAVALETA Start: 12-19-2020 Lipid 1996 panel - S eldon or Plasma Evgeny Zavaleta MD Work Phone: Cataract surgery Evgeny lopez Work Phone: Plan of Treatment Date Care Activity Detail Author Start: 12-19-2025 Lipid panel Lipid Panel [facility] Start: 05-26-2023 Influenza vaccination Influenza Vaccine (Season Ended) [facility] Start: 03-16-2023 End: 03-16-2024 Erythrocyte sedimentation rate Sedimentation Rate Lab Routine PMR (polymyalgia rheumatica) (CMS/[facility]ER[facility]) Expected: 03/16/2023 (Approximate), Expires: 03/16/2024 [facility] Service Area Work Phone: Immunizations Immunization Date Immunization Notes Care Provider Fa ac 08-12-2022 Fluzone High-Dose Quadrivalent 0.7 ML Intramuscular Suspension Prefilled Syringe Evgeny Zavaleta Work Phone: [facility] Work Phone: 08-12-2022 Moderna COVID-19 Biv al Booster 50 MCG/0.5ML Intramuscular Suspension Evgeny Zavaleta Work Phone: [facility] Work Phone: 10-04-2021 Moderna COVID-19 Vaccine 100 MCG/0.5ML Intramuscular Suspension; Translations: [Moderna COVID-19 Vaccine 100 MCG/0.5ML Intramuscular Suspension] Evgeny Zavaleta Work Phone: [facility] Work Phone: Payers Date Payer Category Payer Medicare [id number] 2021 Medicare ANTHEM MEDICARE ANTHEM MEDICARE ADVANTAGE [id number] 2021-Present [address] [place] [address] [id number] 1940 Unknown [id number] 1942 Unknown [id number] 5 1942 Unknown [id number] 1942 Unknown [id number] 1942 Unknown [id number] [id number] 9 1942 Unknown [id number] 9 1942 Unknown [id number] [id number] 9 1942 Unknown [id number] [id number] 3 1942 Unknown [id number] [id number] 3 1942 Unknown [id number] [id number] 3 1942 Unknown [id number] [id number] 3 1942 Unknown [id number] [id number] 3 1942 Unknown [id number] [id number] 4 1942 Unknown [id number] [id number] 4 1942 Unknown [id number] 4 Unknown Social History Date Type Detail Facility Start: 11-28-2022 Does not use tobacco Does not use to bacco [facility] Work Phone: Tobacco smoking consumption unknown [facility] Start: 03-16-2023 Tobacco smoking status NHIS Ex-smoker [facility] History of tobacco use Current smoker [facility] Work Phone: History of tobacco use Cigarette Smoker [facility] Work Phone: History of tobacco use Passive smoker [facility] Work Phone: Start: 03-16-2023 Tobacco use and exposure Smokeless tobacco non-user [facility] Work Phone: Start: 03-16-2023 Alcohol intake Current drinke r of alcohol (finding) [facility] Work Phone: Start: 11-28-2022 Tobacco use panel [facility] Work Phone: Start: 1940 Sex Assigned At Female [facility] Start: 01-23-2023 Gender identity Identifies as female gender (finding) [facility] Work Phone: Start: 03-06-2023 End: 03-16-2023 Exposure to SARS-CoV-2 (event) Not sure [facility] History of Present illness Narrative 03-16-2023 Evgeny Zavaleta MD - 03/16/2023 9:00 AM EDT Note Date & Type Note Facility 03-16-2023 History of Present illness Narrative Subjective Reason for Visit: Radha Gallardo is an 82 y.o. female here for a Medicare Wellness visit. Past Medical, Surgical, and Family History reviewed and updated in chart. Reviewed all medications by prescribing practitioner or clinical pharmacist (such as prescriptions, OTCs, herbal therapies and supplements) and documented in the medical record. HPI Some proxmuscles in arms legs, will ck esr Stoppede all other meds 'HTN-Tstopped all med , occ scoth alcohol. no tobacco. no exercise. low salt. 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 Sleeps 11 to 7 and some tired in afternoon, no nap Patient Care Team: Evgeny Zavaleta MD as PCP - General Evgeny Zavaleta MD as PCP - Anthem Medicare Advantage PCP Review of Systems General-no fatigue weight to within 10 pounds ENT no problems with vision swallowing Cardiac no chest pains palpitations change in exercise tolerance or capacity Pulmonary no cough shortness of breath GI no heartburn or abdominal pain Musculoskeletal no joint pains Objective Vitals: BP 130/70 Pulse 74 Ht 1.575 m (5' 2 ) Wt 57.1 kg (125 lb 12.8 oz) SpO2 96% BMI 23.01 kg/m Physical Exam General: Alert, No acute distress. Appears stated age Eye: Pupils are equal, round and reactive to light, Extraocular movements are intact, Normal conjunctiva. Neck: Supple, Non-tender, No carotid bruit, No jugular venous distention, No lymphadenopathy, No thyromegaly. Respiratory: Lungs are clear to auscultation, Respirations are non-labored, Breath sounds are equal. Cardiovascular: Normal rate, Regular rhythm, No murmur. Gastrointestinal: Soft, Non-tender, No organomegaly. No solid or pulsatile mass Integumentary: Warm, Dry. No concerning lesions on exposed areas Neurologic: Alert, Oriented. Gross and fine motor intact, CN 2-12 intact Psychiatric: Cooperative, Appropriate mood & affect. Assessment/Plan Problem List Items Addressed This Visit Nervous PMR (polymyalgia rheumatica) (CMS/[facility]) Overview PMR is quiescent, is on no prednisone at this time Circulatory Benign essential HTN Other Visit Diagnoses Routine general medical examination at health care facility - Primary documented in this encounter [facility] Work Phone: History of Present illness Narrative 09-30-2021 Note Date & Type Note Facility 09-30-2021 History of Present illness Narrative Since the last office visit there have been no interval operations, hospitalizations, important illnesses or injuries.diverticulitis attack, resolved with bowel restsees italanki reduced HC to 1 a day, feels liteheadedness, may attempt washoutmemory - seen laila degroot and lorena. alyson with all executive functions.osteopenia- on fosamaxrecc covid boosters [facility] Work Phone: History of Present illness Narrative 12-13-2020 Note Date & Type Note Facility 12-13-2020 History of Present illness Narrative Patient is a [id number] -year-old female presenting today for evaluation of her right wrist. 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 She began to feel symptomatic approximately one year ago, as her numbness has been progressively worsening over time. 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 She denies any neck pain or radicular symptoms. She denies persistent numbness through out the day, stating the numbness and tingling sensations present mostly at night while she is trying to sleep. She denies any significant testing or treatments to date. She denies any history of diabetes. She has previously tried multiple braces for her wrist in which she states she has been tolerating well, but denies significant improvement with wearing. [facility] Work Phone: History of Present illness Narrative 12-09-2020 Note Date & Type Note Facility 12-09-2020 History of Present illness Narrative Patient is a [id number] -year-old female presenting today for evaluation of her right wrist. 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 She began to feel symptomatic approximately one year ago, as her numbness has been progressively worsening over time. 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 She denies any neck pain or radicular symptoms. She denies persistent numbness through out the day, stating the numbness and tingling sensations present mostly at night while she is trying to sleep. She denies any significant testing or treatments to date. She denies any history of diabetes. She has previously tried multiple braces for her wrist in which she states she has been tolerating well, but denies significant improvement with wearing. [facility] [address] Work Phone: Evaluation note Note Date & Type Note Facility documented in this encounter [facility] Work Phone: History of Present illness Narrative Note Date & Type Note Facility History of Present illness Narrative The patient is being seen for the subsequent annual wellness visit.Past Medical, Surgical and Family History: reviewed and updated in chart.Interval History: Patient has not been hospitalized previously.Medications and Supplements: Review of all medications by a prescribing practitioner or clinical pharmacist (such as prescriptions, OTCs, herbal therapies and supplements) documented in the medical record.No, the patient is not using opioids.Health Risk Assessment:. Paper HRA completed by patient and scanned into chart.Patient Self Assessment of Health Status: good.Tobacco use: Non-UserAlcohol use: User, As noted in social history <2.Illicit drug use: Non-UserCurrent diet: well balanced diet.Exercise Frequency: infrequently.Depression/Suicide Screening: .During the past 2 weeks, the patient has not felt down, depressed or hopeless.During the past 2 weeks, the patient has not felt little interest or pleasure in doing things.Some affect form 2 deathsHearing Impairment: Patient has significant hearing impairment, bilaterally, She uses a hearing aid.Cognitive Impairment: Cognitive impairment was observed.Bathing: performs independently.Dressing: performs independently.Walking: performs independently.Toileting: performs independently.Feeding: performs independently.Personal Hygiene: performs independently.Bowels: continent.Bladder: continent.Managing Finances: performs independently.Shopping: performs independently.Managing Medications: performs independently.Housework / Basic Home Maintenance: performs independently.Handling Transportation: performs independently.Preparing Meals: performs independently.Using the Telephone/ Communication Devices: performs independently.Falls Risk Screening:. RADHA has not fallen in the last 6 months.Home safety risk factors: none.Since the last office visit there have been no interval operations, hospitalizations, important illnesses or injuries.derm had biopsy,has been at dr amador for memory eval and notes bp is upn=10 x= 150s/<80no tob , alc <2 a dayno gout, recc hctz 12.5 with laba and appt in 1 month RAP [facility] Work Phone: History of Present illness Narrative Note Date & Type Note Facility History of Present illness Narrative HTN-Takes and tolerates meds without side effects. <2 alcohol. no tobacco. no exercise. low salt. Reviewed recommendation for 150 minutes of exercise per week including 2 days of weight training if over age 50Since the last office visit there have been no interval operations, hospitalizations, important illnesses or injuries.since starting losartan, and also got new lenses in glasses, for last 3 mo has briefly loses equilibrium, like she turns the corner too soon RAP [facility] Work Phone: History of Present illness Narrative Note Date & Type Note Facility History of Present illness Narrative Chronic/multijoint arthritic condition and sx HX. Physical findings include weakness at all areas and endrange pain with active R shldr elevation. Continue with aquatic R shldr/hip and B knee PRE and also gait/balance work in pool and land environment.Clinical Presentation: Stable and/or uncomplicated characteristics.Level of Complexity: lowProblem List: activity limitations, ADLs/IADLs/self care skills, decreased functional level, decreased knowledge of HEP, decreased knowledge of precautions, fall risk, gait/locomotion, pain, range of motion/joint mobility, strength and transfers. [facility] Work Phone: Reason for referral (narrative) Consultation (Routine) - Authorized Note Date & Type Note Facility Referral ID Status Reason Start Date Expiration Date V isits Requested Visits Authorized [id number] Authorized 03/16/2023 09/12/2023 1 1 [facility] Work Phone: Reason for visit Narrative Note Date & Type Note Facility Reason for visit Narrative Initial Evalu ation . B knee; R shldr/hip pain; gait difficulty.Referred by: [facility] Work Phone: Family History No Family History Records FoundUnknown Family Member Name Dates Details Family history of chronic ob structive pulmonary disease: Father(V17.6, Z82.5) Status:Active Family history of heart fail ure: Mother(V17.49, Z82.49) Status:Active Family history of myocardial infarction: Mother(V17.3, Z82.49) Status:Active Family history of coronary a rtery disease: Mother(V17.3, Z82.49) Status:Active Unknown Family Member Name Dates Details Family history of chronic ob structive pulmonary disease: Father(V17.6, Z82.5) Status:Active Family history of heart fail ure: Mother(V17.49, Z82.49) Status:Active Family history of myocardial infarction: Mother(V17.3, Z82.49) Status:Active Family history of coronary a rtery disease: Mother(V17.3, Z82.49) Status:Active Unknown Family Member Name Dates Details Family history of chronic ob structive pulmonary disease: Father(V17.6, Z82.5) Status:Active Family history of heart fail ure: Mother(V17.49, Z82.49) Status:Active Family history of myocardial infarction: Mother(V17.3, Z82.49) Status:Active Family history of coronary a rtery disease: Mother(V17.3, Z82.49) Status:Active Unknown Family Member Name Dates Details Family history of chronic ob structive pulmonary disease: Father(V17.6, Z82.5) Status:Active Family history of heart fail ure: Mother(V17.49, Z82.49) Status:Active Family history of myocardial infarction: Mother(V17.3, Z82.49) Status:Active Family history of coronary a rtery disease: Mother(V17.3, Z82.49) Status:Active Unknown Family Member Name Dates Details Family history of chronic ob structive pulmonary disease: Father(V17.6, Z82.5) Status:Active Family history of heart fail ure: Mother(V17.49, Z82.49) Status:Active Family history of myocardial infarction: Mother(V17.3, Z82.49) Status:Active Family history of coronary a rtery disease: Mother(V17.3, Z82.49) Status:Active Unknown Family Member Name Dates Details Family history of coronary a rtery disease: Mother(V17.3, Z82.49) Status:Active Family history of myocardial infarction: Mother(V17.3, Z82.49) Status:Active Family history of heart fail ure: Mother(V17.49, Z82.49) Status:Active Family history of chronic ob structive pulmonary disease: Father(V17.6, Z82.5) Status:Active Unknown Family Member Name Dates Details Family history of myocardial infarction: Mother(V17.3, Z82.49) Status:Active Family history of coronary a rtery disease: Mother(V17.3, Z82.49) Status:Active Family history of heart fail ure: Mother(V17.49, Z82.49) Status:Active Family history of chronic ob structive pulmonary disease: Father(V17.6, Z82.5) Status:Active Unknown Family Member Name Dates Details Family history of myocardial infarction: Mother(V17.3, Z82.49) Status:Active Family history of coronary a rtery disease: Mother(V17.3, Z82.49) Status:Active Family history of heart fail ure: Mother(V17.49, Z82.49) Status:Active Family history of chronic ob structive pulmonary disease: Father(V17.6, Z82.5) Status:Active Unknown Family Member Name Dates Details Family history of chronic ob structive pulmonary disease: Father(V17.6, Z82.5) Status:Active Family history of heart fail ure: Mother(V17.49, Z82.49) Status:Active Family history of myocardial infarction: Mother(V17.3, Z82.49) Status:Active Family history of coronary a rtery disease: Mother(V17.3, Z82.49) Status:Active Unknown Family Member Name Dates Details Family history of myocardial infarction: Mother(V17.3, Z82.49) Status:Active Family history of coronary a rtery disease: Mother(V17.3, Z82.49) Status:Active Family history of heart fail ure: Mother(V17.49, Z82.49) Status:Active Family history of chronic ob structive pulmonary disease: Father(V17.6, Z82.5) Status:Active Unknown Family Member Name Dates Details Family history of chronic ob structive pulmonary disease: Father(V17.6, Z82.5) Status:Active Family history of heart fail ure: Mother(V17.49, Z82.49) Status:Active Family history of myocardial infarction: Mother(V17.3, Z82.49) Status:Active Family history of coronary a rtery disease: Mother(V17.3, Z82.49) Status:Active Chief Complaint 6 MO DIZZINESS, GERD, INFLAMMATORY, POLYARTHRITIS, PMR CKNEW) right wrist pain, 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 Onset: >1 year. 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 She denies any significant testing or treatments to date. She denies any history of diabetes. 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 Onset: >1 year. 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 She denies any significant testing or treatments to date. She denies any history of diabetes. She denies any neck pain or radicular symptoms.MCW..6 MO FU6 MO FU. WOULD LIKE TO DISCUSS DIZZINESS Summary Purpose Advance Directives No Advanced Directives Records FoundNo Advanced Directives Records FoundNo Advanced Directives Records FoundNo Advanced Directives Records FoundNo Advanced Directives Records FoundNo Advanced Directives Records FoundNo Advanced Directives Records Found Additional Source Comments <item> Privacy Markings (unrecogniz ed section and content) Section Author: Keira Ovalle PROHIBITION ON REDISCLOSURE OF CONFIDENTIAL INFORMATION This notice accompanies a disclosure of information concerning a client made to you with the consent of such client. INFORMATION SOURCE (unrecogn ized section and content) DATE CREATED AUTHOR AUTHOR'S ORGANIZ ATION 03/20/2023 [facility] DATE CREATED AUTHOR AUTHOR'S ORGANIZ ATION 04/25/2023 [facility] DATE CREATED AUTHOR AUTHOR'S ORGANIZ ATION 06/28/2023 [facility] DATE CREATED AUTHOR AUTHOR'S ORGANIZ ATION 06/29/2023 [employer] DATE CREATED AUTHOR AUTHOR'S ORGANIZ ATION 09/10/2023 [facility] DATE CREATED AUTHOR AUTHOR'S ORGANIZ ATION 10/08/2023 [facility] Reason for Visit (unrecogniz ed section and content) Care Teams (unrecognized sec tion and content) FOR RECORDS PERTAINING TO PATIENTS WHO ARE OR HAVE BEEN ENROLLED IN A CHEMICAL DEPENDENCY/SUBSTANCEABUSE PROGRAM, SOME INFORMATION MAY BE OMITTED. This clinical summary was aggregated from multiple sources. Caution should be exercised in using it in the provision of clinical care. This summary normalizes information from multiple sources, and as a consequence, information in this document may materially change the coding, format and clinical context of patient data. In addition, data may be omitted in some cases. CLINICAL DECISIONS SHOULD BE BASED ON THE PRIMARY CLINICAL RECORDS. [facility] [employer] [facility]. provides no warranty or guarantee of the accuracy or completeness of information in this document.
== END | disposition home or self-care (01) ==
LOC: MTRAD 16:30
PROVIDERS: PCP Family Medicine; Referring Provider Psychiatry & Neurology Neurology; Visit Provider Psychiatry & Neurology Neurology
DX: M54.50 Low back pain, unspecified (principal)
CPT/HCPCS: 72100